=== PATIENT | male | born 1985 | race Caucasian/White ===

== ENCOUNTER 2023-10-02 18:14 | Emergency (ER) | payer OTHER, SELFPAY ==
[2023-10-02] VITALS (25 sets, daily range): BP systolic 119–210; BP diastolic 58–123; PULSE 67–106; RESP 14–29; TEMP 36.8; O2SAT 96–100; BMI 33.7
--- NOTE | 2023-10-02 18:26 | EKG_ITS ---
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
--- NOTE | 2023-10-02 18:26 | DI.RAD.S_ITS ---
PROCEDURE: XR CHEST 1V INDICATIONS: chest pain TECHNIQUE: One view of the chest was acquired. COMPARISON: None. FINDINGS: Surgical changes and devices: None. Lungs and pleura: Lungs are clear. No pleural effusions or pneumothorax. Mediastinum: Mediastinal contours appear normal. Heart size is normal. Bones and chest wall: No suspicious bony lesions. Overlying soft tissues appear unremarkable. IMPRESSION: No acute cardiopulmonary abnormality is seen. Approved by: Jerri Bello M.D.,Ph.D. on 10/02/2023 at 19:56
[2023-10-02] MEDS: ASPIRIN 81 MG CHEW TAB 324 MG PO (18:29)
[2023-10-02 18:40] LABS: Add Manual Diff / Slide Review NO; Basophils Absolute Auto 100 /uL (0-100); Basophils Percent Auto 0.6 % (0-2); Eosinophils Absolute Auto 300 /uL (0-450); Eosinophils Percent Auto 2.8 % (2-4); Hematocrit 45.3 % (41-53); Hemoglobin 15.7 g/dL (13.5-17.5); Lymphocytes Absolute Auto 3800 /uL (1100-4500); Lymphocytes Percent Auto 34.1 % (25-40); Mean Corpuscular HGB Conc 34.8 % (30-36); Mean Corpuscular Hemoglobin 30.1 PG (26-34); Mean Corpuscular Volume 86.5 fL (80-100); Monocytes Absolute Auto 1000 /uL (0-900); Monocytes Percent Auto 8.6 % (3-14); Neutrophils Absolute Auto 6100 /uL (1500-7000); Neutrophils Percent Auto 53.9 % (50-75); Platelet Count 258 X10^3/uL (150-400); Red Blood Cell Count 5.23 X10^6/uL (4.5-5.9); Red Cell Distribution Width 13.6 % (11.6-14.8); White Blood Cell Count 11.3 X10^3/uL (4.5-11.0)
[2023-10-02 18:53] LABS: Prothrombin Time 11.2 SECONDS (9.4-12.5)
[2023-10-02 18:56] LABS: PTT Partial Thromboplastin Tim 40 SECONDS (25.1-36.5)
[2023-10-02 19:01] LABS: Alanine Aminotransferase 62 IU/L (<50); Albumin 4.9 g/dL (3.5-5.0); Albumin Globulin Ratio 1.4 (1.0-2.8); Alkaline Phosphatase 82 U/L (38-126); Aspartate Aminotransferase 38 IU/L (17-59); BUN Creatinine Ratio 16.8 (6-22); Bilirubin Total 0.6 mg/dL (0.2-1.3); Blood Urea Nitrogen 18 mg/dL (9-20); Calcium 9.8 mg/dL (8.4-10.2); Carbon Dioxide 22 mmol/L (22-32); Chloride 105 mmol/L (98-107); Creatine Kinase 372 U/L (55-170); Estimated Glomerular Filt Rate > 60 mL/min (>60); Globulin 3.6 g/dL (1.7-4.1); Glucose 91 mg/dL (70-100); HEMOLYSIS < 15 (0-50); Lipase 164 U/L (23-300); Potassium 3.6 mmol/L (3.4-5.1); Sodium 139 mmol/L (137-145); Total Protein 8.5 g/dL (6.3-8.2)
--- NOTE | 2023-10-02 19:04 | PC.NURSE ---
Pt reports start of chest pain at 1100 today, stating he usually gets neck cramps. Denies cardiac history. Pt left work at 1700 and was driving home when he decided something felt wrong and turned around to go to the ER. Pt cool and clammy, pale, unable to get comfortable in bed.
[2023-10-02 19:12] LABS: NT-proBNP (BNP-Adult 18+) < 20 pg/mL (<125); Troponin I < 0.012 ng/mL (0.01-0.034)
--- NOTE | 2023-10-02 20:52 | ED.CHESTPAIN ---
HPI - Chest Pain General Chief Complaint: Chest Pain Stated Complaint: chest px, muscle px left side, numbness, sob Time Seen by Provider: 10/02/23 19:30 Source: patient Mode of arrival: Ambulatory Limitations: no limitations History of Present Illness HPI narrative: 38-year-old gentleman with no significant medical history no primary care physician currently works from home tends to have quite a bit of neck pain secondary to working position. Yesterday was complaining that his right arm felt numb for the majority of the day. Today was noting his left arm was numb and then had some pain radiating into his left upper chest. He was a bit diaphoretic comes in for further evaluation. He describes the left arm pain and left upper chest pain as tightness, he has not noticing palpitations he has not feeling short of breath. He has not taken any medications for this Related Data Previous Rx's Medication Instructions Recorded dexamethasone 4 mg tablet 10 mg (2.5 x 4 mg) PO DAILY #5 tabs 10/02/23 Allergies Allergy/AdvReac Type Severity Reaction Status Date / Time No Known Drug Allergies Allergy Verified 10/02/23 18:22 Review of Systems Review of Systems Narrative: Pertinent positive and negative findings as per HPI Patient History Social History Smoking Status: Unknown if ever smoked Smoking Status: Unknown if ever smoked alcohol intake frequency: a few times a week Substance Use Type: marijuana Exam Initial Vital Signs Initial Vital Signs: Vital Signs Temperature 98.3 F 10/02/23 18:22 Pulse Rate 79 10/02/23 18:22 Respiratory Rate 18 10/02/23 18:22 Blood Pressure 197/123 H 10/02/23 18:22 Pulse Oximetry 100 10/02/23 18:22 Oxygen Delivery Method Room Air 10/02/23 18:22 General: Healthy appearing, BMI of 33, slightly pale, mildly diaphoretic, mild neck pain with palpation Able to give a complete and coherent history. HEENT: Moist mucous membranes, normal sclera with reactive pupils, mild midline C4-5 6 tenderness that does increase the neuropathic pain down both arms and into the left upper chest area Neck: No JVD, supple Respiratory: Lungs are clear to auscultation, no wheezing no rales no rhonchi. Full and symmetrical air movement Cardiac: Regular rate and rhythm no murmurs no bruits Abdomen: Soft, nontender, good bowel tones, no flank pain Skin: Pale, slightly diaphoretic Neurologic: Complains of tingling in his left arm with objective neurologic exam unremarkable Extremities: No trauma, well perfused Psych: Cooperative, appropriate insight and affect Course Orders Ordered: ED Orders 10/02/23 18:26 XR chest 1V Stat EKG-12 Lead Stat 10/02/23 18:32 Complete Blood Count AUTO DIFF Stat Comprehensive Metabolic Panel Stat Lipase Stat Magnesium Stat NT-proBNP (BNP-Adult 18+) Stat PTT Partial Thromboplastin Anup Stat Prothrombin Time INR Stat Troponin & CK Cardiac Panel Stat 10/02/23 21:05 CT angio chest abdomen pelvis Stat 10/02/23 21:15 Trop I [Troponin I] Stat 10/02/23 21:39 EKG-12 Lead Stat 10/02/23 21:52 EKG-12 Lead Stat Morphine Sulfate (Morphine 2 Mg/Ml Inj) 2 mg IV Q2HR PRN PRN Reason: Pain, Moderate (4-6) Last Admin: 10/02/23 21:25 Dose: 2 mg Documented By: MAURILIO Discontinued Medications Aspirin (Aspirin 81 Mg Chew Tab) 324 mg PO NOW ONE Stop: 10/02/23 18:27 Last Admin: 10/02/23 18:29 Dose: 324 mg Documented By: PABLO Nitroglycerin (Nitroglycerin 0.4 Mg Sl Tab) 0.4 mg SL [id number] PRN PRN Reason: Chest Pain Last Admin: 10/02/23 21:21 Dose: 0.4 mg Documented By: Admin: 10/02/23 21:15 Dose: 0.4 mg Documented By: Admin: 10/02/23 21:09 Dose: 0.4 mg Documented By: MAURILIO Vital Signs Vital signs: Vital Signs - 8 hr 10/02/23 18:22 10/02/23 18:58 10/02/23 18:59 Temperature 98.3 F Pulse Rate 79 78 Respiratory Rate 18 29 H Blood Pressure 197/123 H 205/115 H Pulse Oximetry 100 99 Oxygen Delivery Method Room Air 10/02/23 18:59 10/02/23 19:00 10/02/23 19:30 Temperature Pulse Rate 82 79 74 Respiratory Rate 14 17 16 Blood Pressure Pulse Oximetry 100 100 98 Oxygen Delivery Method Room Air 10/02/23 19:31 10/02/23 19:31 10/02/23 19:34 Temperature Pulse Rate 75 Respiratory Rate 18 Blood Pressure 210/102 H 189/105 H Pulse Oximetry 97 Oxygen Delivery Method Room Air 10/02/23 19:34 10/02/23 20:00 10/02/23 20:01 Temperature Pulse Rate 72 77 Respiratory Rate 17 16 Blood Pressure 181/113 H Pulse Oximetry 99 98 Oxygen Delivery Method Room Air 10/02/23 20:01 10/02/23 20:30 10/02/23 20:30 Temperature Pulse Rate 82 80 Respiratory Rate 21 17 Blood Pressure 177/94 H Pulse Oximetry 97 99 Oxygen Delivery Method Room Air Room Air 10/02/23 21:00 10/02/23 21:01 10/02/23 21:01 Temperature Pulse Rate 92 H 91 H Respiratory Rate 28 H 22 Blood Pressure 178/96 H Pulse Oximetry 99 97 Oxygen Delivery Method Room Air 10/02/23 21:09 10/02/23 21:12 10/02/23 21:12 Temperature Pulse Rate 97 H 95 H Respiratory Rate 25 H Blood Pressure 178/96 H 149/95 H Pulse Oximetry 99 Oxygen Delivery Method Room Air 10/02/23 21:15 10/02/23 21:16 10/02/23 21:16 Temperature Pulse Rate 103 H 94 H Respiratory Rate 25 H Blood Pressure 142/90 H 142/90 H Pulse Oximetry 99 Oxygen Delivery Method Room Air 10/02/23 21:20 10/02/23 21:20 10/02/23 21:21 Temperature Pulse Rate 91 H 90 Respiratory Rate 29 H Blood Pressure 133/79 133/79 Pulse Oximetry 98 Oxygen Delivery Method Room Air 10/02/23 21:25 10/02/23 21:25 10/02/23 21:39 Temperature Pulse Rate 67 104 H Respiratory Rate 19 Blood Pressure 119/58 L Pulse Oximetry 97 97 Oxygen Delivery Method Room Air 10/02/23 21:41 10/02/23 21:41 10/02/23 22:00 Temperature Pulse Rate 99 H Respiratory Rate 19 Blood Pressure 159/83 H 148/71 H Pulse Oximetry 98 Oxygen Delivery Method Room Air 10/02/23 22:00 10/02/23 22:30 10/02/23 22:30 Temperature Pulse Rate 86 93 H Respiratory Rate 21 23 Blood Pressure 142/72 H Pulse Oximetry 97 96 Oxygen Delivery Method Room Air Room Air 10/02/23 23:00 10/02/23 23:00 Temperature Pulse Rate 106 H Respiratory Rate 27 H Blood Pressure 143/82 H Pulse Oximetry 97 Oxygen Delivery Method MDM - Chest Pain Lab Data 10/02/23 18:32 10/02/23 18:32 Labs: Lab Results 10/02/23 10/02/23 Range/Units 18:32 21:15 WBC 11.3 H (4.5-11.0) X10^3/uL RBC 5.23 (4.5-5.9) X10^6/uL Hgb 15.7 (13.5-17.5) g/dL Hct 45.3 (41-53) % MCV 86.5 (80-100) fL MCH 30.1 (26-34) PG MCHC 34.8 (30-36) % RDW 13.6 (11.6-14.8) % Plt Count 258 (150-400) X10^3/uL Neut % (Auto) 53.9 (50-75) % Lymph % (Auto) 34.1 (25-40) % [place] % (Auto) 8.6 (3-14) % Eos % (Auto) 2.8 (2-4) % Baso % (Auto) 0.6 (0-2) % Neut # (Auto) 6100 (9212-8026) /uL Lymph # (Auto) 3800 (5806-4453) /uL [place] # (Auto) 1000 H (0-900) /uL Eos # (Auto) 300 (0-450) /uL Baso # (Auto) 100 (0-100) /uL PT 11.2 (9.4-12.5) SECONDS INR 1.0 (0.9-1.3) APTT 40 H (25.1-36.5) SECONDS Sodium 139 (137-145) mmol/L Potassium 3.6 (3.4-5.1) mmol/L Chloride 105 (98-107) mmol/L Carbon Dioxide 22 (22-32) mmol/L BUN 18 (9-20) mg/dL Creatinine 1.07 (0.66-1.25) mg/dL Estimated GFR > 60 (>60) mL/min BUN/Creatinine Ratio 16.8 (6-22) Glucose 91 (70-100) mg/dL Calcium 9.8 (8.4-10.2) mg/dL Magnesium 2.0 (1.6-2.3) mg/dL Total Bilirubin 0.6 (0.2-1.3) mg/dL AST 38 (17-59) IU/L ALT 62 H (<50) IU/L Alkaline Phosphatase 82 (38-126) U/L Total Creatine Kinase 372 H (55-170) U/L Troponin I < 0.012 < 0.012 (0.01-0.034) ng/mL NT-Pro-B Natriuret Pep < 20 (<125) pg/mL Total Protein 8.5 H (6.3-8.2) g/dL Albumin 4.9 (3.5-5.0) g/dL Globulin 3.6 (1.7-4.1) g/dL Albumin/Globulin Ratio 1.4 (1.0-2.8) Lipase 164 (23-300) U/L Imaging Data CT chest abdomen pelvis: Radiologist's Impression: PROCEDURE: CT ANGIO CHEST ABDOMEN PELVIS INDICATIONS: concern for aortic dissection TECHNIQUE: Precontrast 5 mm thick sections acquired from the lung apices to the iliac crests. After the administration of intravenous contrast, 2.5 mm thick sections again acquired from the lung apices to the iliac crests. Maximum intensity projection (MIP) oblique sagittal and coronal reformats were then acquired. For radiation dose reduction, the following was used: automated exposure control. COMPARISON: None. FINDINGS: Image quality: Diagnostic. AORTA: No aortic aneurysm. No acute aortic syndrome. CHEST: Lower Neck: No enlarged lymph nodes. Thyroid: No thyroid nodules which require sonographic evaluation. Axillae: No enlarged lymph nodes. Chest Wall: Unremarkable. Lungs and Pleura: No pneumothorax or pleural effusions. No consolidation or suspicious nodules. Bibasilar atelectasis. Heart: Heart size is normal. No pericardial effusion. Thoracic Vessels: Pulmonary arteries demonstrate normal size. No central to distal lobar pulmonary embolus. Mediastinum and Mercedes: No enlarged lymph nodes. Esophagus: No wall thickening. No hiatal hernia. ABDOMEN: Liver: No solid mass. Gallbladder: No radiopaque gallstones or wall thickening. Biliary ducts: No biliary dilation. Pancreas: No ductal dilation. Spleen: Size is within normal limits. Adrenal Glands: No adrenal nodules. Kidneys and Ureters: No hydronephrosis. No solid mass. No complex renal cystic lesion which requires follow up. Stomach and Bowel: Normal colonic caliber, without significant wall thickening. Peritoneum: No abnormal intraperitoneal fluid. No free air. Ventral Wall: No hernia. Abdominal Nodes: No retroperitoneal or mesenteric adenopathy by size criteria. Vessels: Inferior vena cava is normal in size. PELVIS: Pelvic Organs: Unremarkable. Bladder: Unremarkable. Pelvic Nodes: No enlarged lymph nodes. Miscellaneous: No inguinal hernias are seen. Bones: Unremarkable. IMPRESSION: No acute aortic syndrome or aneurysm. No proximal pulmonary embolus. Dictated by: Quinn Kelley M.D. on 10/02/2023 at 22:07 MDM Narrative Medical decision making narrative: CC: Neck pain, neuropathy down both arms, chest pain with tightness, diaphoresis Complicating co-morbidities: Has not recently seen a physician, carries no medical diagnoses Data collected from: patient Differential considered: STEMI, acute coronary syndrome dissection, pulmonary embolism, myocarditis, pulmonary embolism, cervical stenosis, cervical radicular pain with central disc bulge Exam documented above, pertinent findings include: On initial exam he is anxious, somewhat pale slightly diaphoretic. Neck is somewhat tender to palpation. Remainder of exam is benign Lab Test results independently reviewed as above. Pertinent findings: CBC shows minor leukocytosis at 11.3 with no significant left shift Chemistries are reassuring with normal creatinine Troponin initially is undetectable, repeat EKG is equally unremarkable Total creatinine kinase is slightly elevated at 372 ProBNP is low Lipase is appropriate Independently reviewed EKG: Sinus rhythm at a rate of 92. No acute ischemic changes Imaging studies independently reviewed: Chest x-ray shows no cardiopulmonary abnormality. He has quite a bit of gas in his small-bowel CT angiogram of the chest abdomen and pelvis does not suggest dissection aneurysm or pulmonary embolism Treatments: Aspirin. Nitroglycerin which did bring his blood pressure down and did slightly relieve his overall chest pressure. Re-evaluations: Pain did improve with sublingual nitroglycerin Discussion: 38-year-old gentleman presents with initially neck pain and right arm pain than progressing to left arm pain and eventually left chest pain which led to his visit. With the pale diaphoresis chest pressure complaint radiating through to his back STEMI, acute coronary syndrome, dissection, significant pulmonary pathology were all ruled out. In the absence of severe pathology alternative diagnoses were considered, given his midline cervical spine pain with a peripheral neuropathy down both hands in a see 4 and 5 distribution with the minor chest pain that was reproduced with palpation along the midline cervical spine I suspect that this is radicular pain rather than acute coronary pain. Will have him complete 3 days of dexamethasone. I suspect that he also has underlying high blood pressure and I did ask that he get a blood pressure cuff, he is now willing to consider follow up with the primary care physician and will need further workup. He may benefit from outpatient further cardiac risk stratification. At this point there is no indication for additional blood work further imaging or hospitalization and he will be discharge. Discharge Plan Departure Patient Disposition: Home Clinical Impression: Cervical radiculopathy at C5 Chest pain Qualifiers: Chest pain type: unspecified Qualified Code(s): R07.9 - Chest pain, unspecified Instructions: DI for High Blood Pressure, DI for Atypical Chest Pain, DI for Cervical Radiculopathy Activity Restrictions/Additional Instructions: Thank you for coming in today Your blood work, CT scan of the chest and your entire aorta, EKG and chest x-ray do not suggest an acute heart attack I am seeing no signs of significant infection I am wondering if the pain that you are experiencing in the left upper portion of your chest is actually radicular pain from your neck. With the numbness that you had in your right arm yesterday, the slight numbness in the left arm today and knowing that the rest of the heart workup was very reassuring, the possibility is very real. I am going to suggest we treat you with 3 days of dexamethasone, the 1st dose is given in the emergency department. This is a powerful anti-inflammatory steroid. If the pain is from inflammation pinching on the nerve in your neck than the dexamethasone should help I am also concerned that you do have a diagnosis of high blood pressure. I would recommend that you get a blood pressure cuff and check blood pressures once a day at various times through the day. Please simply write the numbers down, and they will need to be reviewed with your new primary care physician You can call the main phone number at [facility] at [phone] and let them know you are looking to establish care with a new primary care physician If you find that you are having worsening chest pain, shortness for breath new findings or other concerns that would be entirely appropriate to return to the emergency department Prescriptions: New dexamethasone 4 mg tablet 10 mg PO DAILY Qty: 5 0RF Referrals: Miscellaneous,Doctor, MD [Primary Care Provider] - Stand Alone Forms: Patient Portal/API
--- NOTE | 2023-10-02 21:05 | DI.CT.S_ITS ---
PROCEDURE: CT ANGIO CHEST ABDOMEN PELVIS INDICATIONS: concern for aortic dissection TECHNIQUE: Precontrast 5 mm thick sections acquired from the lung apices to the iliac crests. After the administration of intravenous contrast, 2.5 mm thick sections again acquired from the lung apices to the iliac crests. Maximum intensity projection (MIP) oblique sagittal and coronal reformats were then acquired. For radiation dose reduction, the following was used: automated exposure control. COMPARISON: None. FINDINGS: Image quality: Diagnostic. AORTA: No aortic aneurysm. No acute aortic syndrome. CHEST: Lower Neck: No enlarged lymph nodes. Thyroid: No thyroid nodules which require sonographic evaluation. Axillae: No enlarged lymph nodes. Chest Wall: Unremarkable. Lungs and Pleura: No pneumothorax or pleural effusions. No consolidation or suspicious nodules. Bibasilar atelectasis. Heart: Heart size is normal. No pericardial effusion. Thoracic Vessels: Pulmonary arteries demonstrate normal size. No central to distal lobar pulmonary embolus. Mediastinum and Mercedes: No enlarged lymph nodes. Esophagus: No wall thickening. No hiatal hernia. ABDOMEN: Liver: No solid mass. Gallbladder: No radiopaque gallstones or wall thickening. Biliary ducts: No biliary dilation. Pancreas: No ductal dilation. Spleen: Size is within normal limits. Adrenal Glands: No adrenal nodules. Kidneys and Ureters: No hydronephrosis. No solid mass. No complex renal cystic lesion which requires follow up. Stomach and Bowel: Normal colonic caliber, without significant wall thickening. Peritoneum: No abnormal intraperitoneal fluid. No free air. Ventral Wall: No hernia. Abdominal Nodes: No retroperitoneal or mesenteric adenopathy by size criteria. Vessels: Inferior vena cava is normal in size. PELVIS: Pelvic Organs: Unremarkable. Bladder: Unremarkable. Pelvic Nodes: No enlarged lymph nodes. Miscellaneous: No inguinal hernias are seen. Bones: Unremarkable. IMPRESSION: No acute aortic syndrome or aneurysm. No proximal pulmonary embolus. Dictated by: Quinn Kelley M.D. on 10/02/2023 at 22:07 Approved by: Quinn Kelley M.D. on 10/02/2023 at 22:11
[2023-10-02] MEDS: NITROGLYCERIN 0.4 MG SL TAB SL ×3 (21:09→21:21)
[2023-10-02] MEDS: MORPHINE 2 MG/ML INJ IV (21:25)
--- NOTE | 2023-10-02 21:28 | PC.NURSE ---
After three doses of sublingual nitro, patient's chest pain went from a pain level of 8/10 to a level of 4/10. Patient still having left arm and jaw and back pain. Dr. Frey notified.
--- NOTE | 2023-10-02 21:46 | EKG_ITS ---
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
[2023-10-02 21:48] LABS: Troponin I < 0.012 ng/mL (0.01-0.034)
--- NOTE | 2023-10-02 21:52 | EKG_ITS ---
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
[2023-10-02] MEDS: DEXAMETHASONE 10 MG/ML VIAL IV (23:28)
== END 2023-10-02 23:44 | disposition home or self-care (01) ==
PROVIDERS: Emergency Provider Emergency Medicine
DX: M54.12 Radiculopathy, cervical region (principal); R07.9 Chest pain, unspecified; R20.0 Anesthesia of skin
CPT/HCPCS: 36415; 71045; 71275; 74174; 80053; 82550; 83690; 83735; 83880; 84484; 85025; 85610; 85730; 93005; 93010; 96374; 96375; 99284; J1100; J2270; Q9967